=== PATIENT | male | born 1955 | race Caucasian/White ===

== ENCOUNTER 2019-09-08 02:28 | Outpatient (RCR) | payer MEDICARE, OTHER, SELFPAY ==
[2019-08-27] VITALS (8 sets, daily range): BP systolic 94–119; BP diastolic 54–73; PULSE 57–80; RESP 18–19; TEMP 35.2–36.8; O2SAT 100
[2019-08-27] MEDS: Normal Saline Flush 10 ML SYR IVP (08:40)
[2019-08-27] MEDS: Heparin 500 UNITS/5 ML SYRINGE IV (08:41)
[2019-08-27 09:52] LABS: HCT 25.7 % (40.0-50.0); HGB 7.7 g/dL (13.5-17.5); Mean Corpuscular Hemoglobin 27.1 pg (27.0-33.0); Mean Corpuscular Volume 90.5 fL (80-95); RBC 2.84 m/cumm (4.50-6.00); RBC Distribution Width 19.5 % (11.8-14.1); White Blood Cell Count 4.61 k/cumm (4.4-10.8)
[2019-08-27 09:54] LABS: Absolute Neutrophil Count 2.54 k/cumm (1.2-6.7); Platelet Count 21 x1000/uL (130-400)
[2019-08-27 09:55] LABS: Absolute Lymphocyte Count 1.48 k/cumm (1.2-3.4); Absolute Monocyte Count 0.41 k/cumm (0.11-0.7)
[2019-08-27 09:56] LABS: Diff Comment Manual Differential; Nucleated RBC 50 /100WBC; Other Cells 4
[2019-08-27 09:57] LABS: Anisocytosis 2+; Basophilic Stippling Present; Hypochromasia 3+; Macrocytosis 1+; Microcytosis 1+; Polychromasia Present; Target Cells 2+
[2019-08-27 09:58] LABS: Poikilocytes 2+
[2019-08-27 10:21] LABS: ALT 44 U/L (16-63); AST 67 U/L (15-37); Albumin 3.2 g/dL (3.4-5.0); Alkaline Phosphatase 258 U/L (46-116); Anion Gap 8.2 mmol/L (3-11); BUN 41 mg/dL (7-18); Bilirubin, Total 0.8 mg/dL (0.2-1.0); CO2 22.8 mmol/L (21.0-32.0); CREATININE 1.52 mg/dL (0.70-1.30); Calcium 8.9 mg/dL (8.5-10.1); Chloride 106 mmol/L (98-107); Estimated GFR 46.11 (mL/min/1.73m2); Glucose 98 mg/dL (74-106); Potassium 5.9 mmol/L (3.5-5.1); Sodium 137 mmol/L (136-145); Total Protein 6.8 g/dL (6.4-8.2)
[2019-09-03] VITALS (16 sets, daily range): BP systolic 100–130; BP diastolic 52–67; PULSE 51–89; RESP 18–19; TEMP 36–36.5; O2SAT 93–100
[2019-09-03] MEDS: Heparin 500 UNITS/5 ML SYRINGE IV ×2 (08:29→14:30)
[2019-09-03] MEDS: Normal Saline Flush 10 ML SYR IVP (08:29)
[2019-09-03 08:58] LABS: ALT 55 U/L (16-63); AST 62 U/L (15-37); Albumin 3.1 g/dL (3.4-5.0); Alkaline Phosphatase 199 U/L (46-116); Anion Gap 9.8 mmol/L (3-11); BUN 26 mg/dL (7-18); Bilirubin, Total 0.8 mg/dL (0.2-1.0); CO2 25.2 mmol/L (21.0-32.0); CREATININE 1.41 mg/dL (0.70-1.30); Calcium 8.4 mg/dL (8.5-10.1); Chloride 105 mmol/L (98-107); Estimated GFR 50.29 (mL/min/1.73m2); Glucose 107 mg/dL (74-106); Potassium 4.2 mmol/L (3.5-5.1); Sodium 140 mmol/L (136-145); Total Protein 6.8 g/dL (6.4-8.2)
[2019-09-03 09:21] LABS: RBC 2.42 m/cumm (4.50-6.00)
[2019-09-03 09:22] LABS: HCT 22.4 % (40.0-50.0); HGB 6.6 g/dL (13.5-17.5); Mean Corp. HGB Concentration 29.5 g/dL (32.0-36.0); Mean Corpuscular Hemoglobin 27.3 pg (27.0-33.0); Mean Corpuscular Volume 92.6 fL (80-95); RBC Distribution Width 18.7 % (11.8-14.1)
[2019-09-03 09:23] LABS: Platelet Count 20 x1000/uL (130-400)
[2019-09-03 09:25] LABS: Absolute Lymphocyte Count 1.36 k/cumm (1.2-3.4); Absolute Monocyte Count 0.36 k/cumm (0.11-0.7)
[2019-09-03 09:26] LABS: Other Cells 9
[2019-09-03 09:27] LABS: Anisocytosis 3+; Basophilic Stippling Present; Diff Comment Manual Differential; Hypochromasia 3+; Macrocytosis 2+; Microcytosis 1+; Nucleated RBC 350 /100WBC; Polychromasia Present; Target Cells 2+
[2019-09-03 09:28] LABS: Poikilocytes 2+
[2019-09-04] VITALS (8 sets, daily range): BP systolic 106–128; BP diastolic 52–65; PULSE 53–60; RESP 18–19; TEMP 36.2–36.6; O2SAT 98–100
[2019-09-04] MEDS: Normal Saline Flush 10 ML SYR IVP (08:30)
[2019-09-04 09:04] LABS: HCT 25.7 % (40.0-50.0); HGB 7.9 g/dL (13.5-17.5); Mean Corp. HGB Concentration 30.7 g/dL (32.0-36.0); Mean Corpuscular Volume 91.1 fL (80-95); RBC 2.82 m/cumm (4.50-6.00); RBC Distribution Width 18.2 % (11.8-14.1)
[2019-09-04 09:10] LABS: Potassium 4.3 mmol/L (3.5-5.1)
[2019-09-04 10:27] LABS: Platelet Count 10 x1000/uL (130-400)
[2019-09-04 10:46] LABS: White Blood Cell Count 1.31 k/cumm (4.4-10.8)
[2019-09-04 10:47] LABS: Absolute Monocyte Count 0.24 k/cumm (0.11-0.7); Absolute Neutrophil Count 0.21 k/cumm (1.2-6.7)
[2019-09-04 10:48] LABS: Nucleated RBC 638 /100WBC; Other Cells 20
[2019-09-04 10:49] LABS: Anisocytosis 2+; Diff Comment Manual Differential; Hypochromasia 2+; Macrocytosis 2+; Microcytosis 1+; Polychromasia Present; Target Cells 2+
[2019-09-04 10:50] LABS: Poikilocytes 2+
[2019-09-07 08:40] VITALS: BP 99/61; PULSE 74; RESP 18; TEMP 36.3; O2SAT 98
[2019-09-07] MEDS: Normal Saline Flush 10 ML SYR IVP (09:00)
[2019-09-07 09:05] VITALS: BP 111/66; PULSE 64; RESP 18; TEMP 36.2; O2SAT 99
[2019-09-07 09:25] VITALS: BP 132/75; PULSE 63; RESP 18; TEMP 36; O2SAT 100
[2019-09-07 09:50] VITALS: BP 126/70; PULSE 60; RESP 18; TEMP 36; O2SAT 100
== END 2019-09-18 23:59 | disposition home or self-care (01) ==
LOC: INF 02:28
PROVIDERS: PCP Internal Medicine; Visit Provider Nurse Practitioner Family
DX: C92.01 Acute myeloblastic leukemia, in remission (principal); Z45.2 Encounter for adjustment and management of vascular access device
CPT/HCPCS: 36430; 36591; 80053; 86850; 86900; 86901; 86920; 84132; 85025; P9016; P9035